=== PATIENT | male | born 1990 | race Caucasian/White ===

== ENCOUNTER 2021-09-23 10:40 | Emergency (ER) | payer OTHER, SELFPAY ==
[2021-09-23 10:41] VITALS: BP 145/92; PULSE 88; RESP 18; TEMP 35.7; O2SAT 99; BMI 39.4
--- NOTE | 2021-09-23 10:49 | RAD_ITS ---
STUDY: X-RAY CHEST REASON FOR EXAM: Male, 31 years old. Sob TECHNIQUE: PA and lateral views of the chest. COMPARISON: None. FINDINGS: The lungs are clear and expanded. There is no demonstrated pleural abnormality. Normal size heart. Normal mediastinum and christian. Normal visualized pulmonary arteries. Normal visualized aortic arch and descending thoracic aorta. Normal visualized thoracic spine. Normal visualized ribs, clavicles, and shoulders. There is no demonstrated abnormality of the visualized soft tissue structures of the upper abdomen. RAD/Chest PA and Lateral IMPRESSION: Normal x-ray examination of the chest. Electronically Signed: Isaiah Farmer MD at 11:20 EDT , Service support ,
--- NOTE | 2021-09-23 10:50 | EX.ED.DYSGE1 ---
HPI History of Present Illness Chief Complaint: Shortness of Breath Narrative Narrative: Patient is on day 13 of Covid, he is not immunized. He presents with shortness of breath for a few days, there is no pleuritic component. There is no chest pain. Fever and chills have improved, no myalgias. He does not have any calf pain or leg pain no extremity edema. No other DVT or PE risk factors. PFSH PFSH Medical History no medical history Home Medications NK 09/23/21 [History Last Taken Unknown] Allergy/AdvReac Type Severity Reaction Status Date / Time No Known Allergies Allergy Verified 09/23/21 10:43 Surgical History no surgical history Social History Smoking Status: Never smoker ROS ROS ED ROS Narrative Past medical history: Reviewed, unremarkable. He is not immunized Medications: Reviewed Social history: Noncontributory Review of systems: All systems negative except as indicated General: No fever Eyes: No visual changes ENT: Upper airway congestion, rhinorrhea, sore throat. Neck: No neck pain Cardiovascular: No chest pain Respiratory: Dyspnea as in HPI Gastrointestinal: No abdominal pain, nausea vomiting or diarrhea Genitourinary: No dysuria Musculoskeletal: Denies myalgias no difficulty with ambulation Skin: No rash Neurological: No memory loss, confusion or any focal weakness Psych: No recent behavioral changes Hematologic: No easy bleeding or easy bruising EXAM Physical Exam Narrative Exam Narrative: Physical exam General: Patient does not appear in distress he is quite comfortable in the room. Head: Normocephalic, Atraumatic Eyes: Conjunctiva not pale ENT: There is upper airway congestion, rhinorrhea, swollen nasal turbinates which are red. There is quite a bit of postnasal drip, tonsils are slightly enlarged but there is no exudates, there is some erythema. Soft palate is normal without any uvular deviation. Neck: Supple, Nontender, No lymphadenopathy. No stridor Cardiovascular: Regular rate, Regular rhythm Respiratory: No distress, CTA bilaterally Abdomen: Soft, Nontender, Nondistended Back: Nontender, Normal Inspection. Negative for: CVA tenderness Extremities: Nontender, No edema Skin: Normal color, No rash Neurological: Alert, Normal Strength, Normal Sensation Psychological: Normal affect Const Vital Signs: 09/23/21 10:41 09/23/21 10:53 Temperature 96.2 F L Temperature Source Temporal Pulse Rate 88 Respiratory Rate 18 Respiratory Effort Non-Labored Short of Breath Respiratory Depth Normal Respiratory Pattern Normal Blood Pressure 145/92 H Blood Pressure Mean 109 Pulse Ox 99 Oxygen Delivery Method Room Air Room Air MDM MDM MDM Narrative Medical decision making narrative: Patient has a normal x-ray. I am not worried about a DVT or PE. He does have upper airway congestion, this is likely from either Covid or superimposed viral infection. He does have tonsillar enlargement thus I will give a small amount of steroids. Otherwise I will discharge him in stable condition. Radiography Diagnostic Testing: Clinical Impression(s) from Imaging Studies Chest X-Ray 09/23/21 10:49 IMPRESSION: Normal x-ray examination of the chest. Electronically Signed: Isaiah Farmer MD at 11:20 EDT , Service support , X-ray interpreted by me and radiologist does not show any acute process. Discharge Plan Triage Chief Complaint: Shortness of Breath ED Provider: Higinio Yates Dx/Rx/DC Orders Clinical Impression: COVID-19, Acute upper respiratory infection, Acute tonsillitis Instructions: ED Tonsillitis, Human Coronaviruses Prescriptions: No Action NK RF: 0 Primary Care Provider: Higinio Harrison Referrals: Higinio Harrison MD [Primary Care Provider] - 2 Days Disposition Disposition: Home, Self Care
[2021-09-23 10:53] VITALS: O2SAT 99
[2021-09-23] MEDS: dexAMETHasone 4 MG Tablet 12 MG PO (12:19)
[2021-09-23 12:22] VITALS: RESP 16
== END 2021-09-23 12:23 | disposition home or self-care (01) ==
PROVIDERS: Emergency Provider Emergency Medicine; PCP Family Medicine
DX: U07.1 COVID-19 (principal); J03.90 Acute tonsillitis, unspecified
CPT/HCPCS: 71046; 99283

== ENCOUNTER → 2022-08-08 | Outpatient (CLI) | payer SELFPAY ==
[2022-08-08 11:59] LABS: Absolute Lymphocyte Count 2.37 X10^3/uL (0.83-4.51); Absolute Neutrophil Count 4.6 X10^3/uL (2.0-7.7); Basophil# 0.08 X10^3/uL; Eosinophil# 0.11 X10^3/uL; Eosinophils% 1.4 % (0-5); Hematocrit 48.2 % (40-54); Hemoglobin 16.2 g/dL (13.0-16.5); Lymphocyte # 2.37 X10^3/ul (0.83-4.51); Lymphocyte % 30.3 % (19-41); Mean Corp Hgb Conc 33.6 g/dL (32-36); Mean Corpuscular Hgb 30.4 pg (27.0-32.0); Mean Corpuscular Volume 90.4 fL (80-94); Mean Platelet Vol. 10.1 fl (6.2-12.0); Monocyte# 0.61 X10^3/uL; Monocyte% 7.8 % (0-10); NRBC Flagged by Analyzer 0 % (0-5); Neutrophil # 4.62 X10^3/uL (2.7-7.7); Platelet Count 279 K/mm3 (150-450); RBC Distribution Width CV 12.5 % (11.6-14.6); RBC Distribution Width SD 41.2 fl (35.1-43.9); Red Blood Count 5.33 M/mm3 (4.6-6.2); White Blood Count 7.8 K/mm3 (4.4-11.0)
[2022-08-08 12:35] LABS: ALB/GLOB Ratio 1.1 RATIO (0.9-2.4); AST(SGOT) 22 U/L (15-37); Alanine Aminotransfer ALT/SGPT 65 U/L (16-61); Albumin, Serum 4.1 g/dL (3.2-5.0); Alkaline Phosphatase 25 U/L (45-117); Anion Gap 11 (5-15); BUN 13 mg/dL (7-18); BUN/Creat Ratio 14.7 RATIO (10-20); Calcium,Total 9.3 mg/dL (8.5-10.1); Chloride 107 mmol/L (98-107); Creatinine, Serum 0.88 mg/dL (0.70-1.30); EST Glomerular Filtration Rate 108 mL/min (>60); Est Glom Filt Rate - Afr Amer 130 mL/min (>60); Globulin 3.9 g/dL (2.2-4.2); Glucose 101 mg/dL (74-106); Potassium 3.7 mmol/L (3.5-5.1); Sodium Level 142 mmol/L (136-145); Thyroid Stim Hormone (TSH) 1.25 uIU/mL (0.358-3.74)
== END | disposition home or self-care (01) ==
PROVIDERS: PCP Family Medicine; Referring Provider Family Medicine; Visit Provider Family Medicine
DX: R00.2 Palpitations (principal)
CPT/HCPCS: 36415; 80053; 84443; 85025